=== PATIENT | female | born 2000 | race Caucasian/White ===

== ENCOUNTER 2024-04-16 09:03 | Emergency (ER) | payer BC, SELFPAY ==
[2024-04-16] MEDS ORDERED: Ibuprofen 800 MG TAB ONE (09:44)
== END 2024-04-16 10:57 | disposition home or self-care (01) ==
LOC: EDBD 09:03 → NAV ERS 09:03
DX: S16.1XXA Strain of muscle, fascia and tendon at neck level, initial encounter (principal); S80.02XA Contusion of left knee, initial encounter; S80.01XA Contusion of right knee, initial encounter; S60.410A Abrasion of right index finger, initial encounter; S60.412A Abrasion of right middle finger, initial encounter; V48.3XXA Unspecified car occupant injured in noncollision transport accident in nontraffic accident, initial encounter
CPT/HCPCS: 72170; 99284